=== PATIENT | male | born 2000 | race African-American/Black ===

== ENCOUNTER 2022-03-25 20:42 | Emergency (ER) | payer SELFPAY ==
[~2022-03-25] VITALS: Ht 167.6 cm; Wt 81.6 kg
[~2022-03-25 20:42] MED LIST: TYLENOL; ZITHROMAX
[2022-03-25 20:51] VITALS: BP 123/82
[2022-03-25] MEDS ORDERED: IBUPROFEN 600 MG TAB PO ONE (21:25)
[2022-03-25] MEDS ORDERED: NAPR-1704 PO (22:07)
[2022-03-25] MEDS ORDERED: FAMO-90 PO (22:07)
--- NOTE | 2022-03-25 22:20 | NUR ---
Patient discharged with v/s stable. Written and verbal after care instructions given and explained. Patient alert, oriented and verbalized understanding of instructions. Ambulatory with steady gait. All questions addressed prior to discharge. ID band removed. Patient advised to follow up with PMD. Rx of NAPROXYN given. Patient educated on indication of medication including possible reaction and side effects. Opportunity to ask questions provided and answered.
== END 2022-03-25 22:20 | disposition home or self-care (01) ==
LOC: MED 20:42
DX: R07.89 Other chest pain (principal); R06.02 Shortness of breath; Z79.899 Other long term (current) drug therapy; Z88.1 Allergy status to other antibiotic agents; Z88.8 Allergy status to other drugs, medicaments and biological substances
CPT/HCPCS: 71045; 99283